=== PATIENT | female | born 1990 | race African-American/Black ===

== ENCOUNTER 2020-01-16 15:25 | Emergency (ER) | payer OTHER, MEDICAID ==
[~2020-01-16] VITALS: Ht 172.7 cm; Wt 59.0 kg
[2020-01-16] MEDS ORDERED: DEXT10TA4 MT (15:36)
[2020-01-16] MEDS ORDERED: VISCOUS LIDOCAINE 2% 15 ML UDC PO ONE (16:30)
[2020-01-16] MEDS ORDERED: MAGNESIUM/ALUMINUM HYDROXIDE/SIMETHICONE 30ML UDC PO ONE (16:30)
[2020-01-16] MEDS ORDERED: ALPRAZOLAM 0.5 MG TABLET PO ONE (16:30)
[2020-01-16] MEDS ORDERED: ASPIRIN 81MG TABLET PO ONE (16:30)
[2020-01-16 17:04] LABS: CLARITY URINE CLEAR (CLEAR); COLOR URINE YELLOW (YELLOW); KETONES URINE NEGATIVE (NEGATIVE); LEUKOCYTE ESTERASE URINE TRACE (NEGATIVE); NITRITE URINE NEGATIVE (NEGATIVE); OCCULT BLOOD URINE NEGATIVE (NEGATIVE); PH URINE 6.5 (4.5-8.0); PROTEIN URINE NEGATIVE (NEGATIVE); SPECIFIC GRAVITY URINE 1.012 (1.005-1.030); UROBILINOGEN URINE 0.2 E.U./dL (0.2-1.0)
[2020-01-16 18:00] VITALS: BP 120/65
== END 2020-01-16 19:27 | disposition left against medical advice (07) ==
LOC: ER 15:25
DX: R07.9 Chest pain, unspecified (principal); I10 Essential (primary) hypertension; R06.02 Shortness of breath
CPT/HCPCS: 71045; 81003; 81025; 93005; 99285; Z7610

== ENCOUNTER 2025-04-21 02:05 | Emergency (ER) | payer MEDICAID, OTHER ==
[~2025-04-21] VITALS: Ht 165.1 cm; Wt 60.0 kg
[~2025-04-21 02:05] MED LIST: DEXT10TA4 MT
[2025-04-21 02:35] VITALS: O2SAT 98
[2025-04-21 03:51] LABS: BASOPHILS % 0.3 % (0.0-2.0); HEMATOCRIT. 36.9 % (36.0-48.0); HEMOGLOBIN. 12.3 g/dL (12.0-16.0); LYMPHOCYTES % 9.3 % (20.0-50.0); MEAN CORPUSCULAR HEMOGLOBIN 29.5 pg (28.0-32.0); MEAN CORPUSCULAR HGB CONC 33.4 g/dL (31.0-37.0); MEAN CORPUSCULAR VOLUME 88.4 fL (81.0-99.0); MEAN PLATELET VOLUME 8.4 fl (7.4-10.4); MONOCYTES % 7.9 % (2.0-8.0); NEUTROPHILS % 82.5 % (40.0-76.0); PLATELET 310 x1000/uL (130-400); RED BLOOD CELL COUNT 4.18 mill/uL (4.2-5.4); RED CELL DISTRIBUTION WIDTH 14.4 % (11.6-14.6); WHITE BLOOD COUNT 9.6 x1000/uL (4.5-11.0)
[2025-04-21 03:56] LABS: *AMPHETAMINES SCREEN URINE PRESUMPTIVE POSITIVE (NEGATIVE); *BARBITURATES SCREEN URINE NEGATIVE (NEGATIVE); *BENZODIAZEPINES SCREEN URINE NEGATIVE (NEGATIVE); *COCAINE SCREEN URINE NEGATIVE (NEGATIVE); METHADONE URINE SCREEN NEGATIVE (NEGATIVE); OPIATES URINE SCREEN NEGATIVE (NEGATIVE); PHENCYCLIDINE URINE SCREEN NEGATIVE (NEGATIVE)
[2025-04-21 03:57] LABS: CANNABINOID URINE SCREEN PRESUMPTIVE POSITIVE (NEGATIVE); ECSTASY MDMA SCREEN URINE CONF.TEST INDICATED (NEGATIVE)
[2025-04-21 04:03] LABS: CARBON DIOXIDE 26 mEq/L (21-32); CHLORIDE 104 mEq/L (98-107); SODIUM 142 mEq/L (136-145)
[2025-04-21 04:04] LABS: CALCIUM 9.5 mg/dL (8.7-10.4)
[2025-04-21 04:09] LABS: CREATININE 0.7 mg/dL (0.6-1.0); ETHANOL BLOOD < 10 mg/dL (<10); GLUCOSE 71 mg/dL (70-105); UREA NITROGEN BLOOD 9 mg/dL (9-23)
[2025-04-21 04:15] LABS: POTASSIUM 2.8 mEq/L (3.5-5.1)
[2025-04-21 05:14] LABS: ACETAMINOPHEN < 2 ug/mL (10-30)
[2025-04-21] MEDS ORDERED: POTASSIUM CHLORIDE 20MEQ/PACKET PO SCH (06:00)
[2025-04-21 07:31] LABS: HCG SCREEN NEGATIVE
[2025-04-21] MEDS: POTASSIUM CHLORIDE 20MEQ/PACKET PO SCH (10:52)
[2025-04-21 14:25] LABS: CARBON DIOXIDE 25 mEq/L (21-32); CHLORIDE 107 mEq/L (98-107); POTASSIUM 3.8 mEq/L (3.5-5.1); SODIUM 143 mEq/L (136-145)
[2025-04-21 14:30] LABS: CREATININE 0.6 mg/dL (0.6-1.0)
[2025-04-21 14:31] LABS: GLUCOSE 50 mg/dL (70-105); UREA NITROGEN BLOOD 6 mg/dL (9-23)
[2025-04-21 14:32] LABS: ALANINE AMINOTRANSFERASE 18 IU/L (10-49)
[2025-04-21 14:33] LABS: ALBUMIN 3.7 g/dL (3.2-4.8); ASPARTATE AMINOTRANSFERASE 27 IU/L (<34); BILIRUBIN TOTAL 1.8 mg/dL (0.1-1.0); PROTEIN TOTAL 6.2 g/dL (6.0-8.3)
[2025-04-21] MEDS: DEXTROSE 50% WATER 50ML SYRINGE IV ONE (18:23)
[2025-04-22 08:33] VITALS: BP 122/65; PULSE 74; RESP 18; TEMP 36.7; O2SAT 99
== END 2025-04-22 08:50 | disposition home or self-care (01) ==
LOC: ER 02:05
DX: R44.0 Auditory hallucinations (principal); R44.1 Visual hallucinations; F41.9 Anxiety disorder, unspecified; I10 Essential (primary) hypertension; Z79.899 Other long term (current) drug therapy; Z20.822 Contact with and (suspected) exposure to COVID-19
CPT/HCPCS: 80053; 80305; 80048; 81025; 80307; 80329; 80320; 82962 ×2; 84703; 85025; 36415; 93005; 96374; 99285; 87426; Z7610; 96365; G0480